=== PATIENT | male | born 1960 | race Caucasian/White ===

== ENCOUNTER → 2016-09-17 | Outpatient (CLI) | payer OTHER ==
[~2016-09-17] MED LIST: ACET-1138 PO; LISI-461 PO; NEBI10TA2 PO; ONDA8TAB6 PO; RXC5 PO; SNK PO; TRAMTAB5 PO; XRL10 PO; [UNRECOGNIZED DRUG - REMARK]
[2016-09-17 12:06] LABS: BASO % 0.8 %; BASO ABS # 0.05 K/uL (0-0.2); COMPLETE YES; EOS % 4.4 %; HEMATOCRIT 46.4 % (42-52); IG% 0.2 %; LYMPH % 26.4 %; LYMPH ABS # 1.76 K/uL (1.2-3.4); MEAN CELL VOLUME 97.5 fL (80-100); MEAN CORPUSCULAR HGB CONC 33.8 g/dl (32-36); MONO % 10.5 %; NEUT % 57.7 %; PLATELET COUNT 254 K/uL (130-400); RED BLOOD COUNT 4.76 M/uL (4.7-6.1); WHITE BLOOD COUNT 6.66 K/uL (4.8-10.8)
[2016-09-17 12:18] LABS: BLOOD UREA NITROGEN 13 mg/dl (7-18); BUN/CREATININE RATIO 14.4 (10-20); CALCIUM 8.8 mg/dl (8.5-10.1); CARBON DIOXIDE 28 mmol/L (21-32); CHLORIDE 108 mmol/L (98-107); CREATININE 0.88 mg/dl (0.60-1.40); GLUCOSE 105 mg/dl (70-99); POTASSIUM 4.3 mmol/L (3.5-5.1); SODIUM 142 mmol/L (136-145)
[2016-09-17 12:25] LABS: ALB/GLOB RATIO 0.9 (0.9-2); ALKALINE PHOSPHATASE 77 U/L (45-117); ALT/SGPT 66 U/L (12-78); AST/SGOT 53 U/L (15-37); CHOLESTEROL 181 mg/dl (0-200); CHOLESTEROL/HDL RATIO 3.4; HDL CHOLESTEROL 53 mg/dl; LDL CHOLESTEROL CALCULATED 109 mg/dl; TRIGLYCERIDES 95 mg/dl (0-150); VERY LOW DENSITY LIPOPROT CALC 19 mg/dl
[2016-09-17 12:32] LABS: ESTIMATED AVERAGE GLUCOSE 103 mg/dl; HA1C FLAG Normal (Normal)
== END | disposition home or self-care (01) ==
LOC: C.LABBC 10:24
PROVIDERS: ATTEND Internal Medicine
DX: Z00.00 Encounter for general adult medical examination without abnormal findings (principal)

== ENCOUNTER 2017-02-08 05:02 | Inpatient (IN) | payer OTHER ==
[2017-01-14 08:49] VITALS: BMI 35.0
--- NOTE | 2017-01-14 09:11 | PAT Medication Instructions ---
Service Date January 14, 2017. Current Home Medication List Nebivolol Hcl (Bystolic), 10 MG PO QAM Tramadol/Acetaminophen (Ultracet), 1 TAB PO HS PRN for Pain [Dr Jordan's Vit] Medication Instructions For Your Scheduled Surgery - Hold the following medications the morning of surgery: [Dr Jordan'kaitlynn Vit] - Take the following medications the morning of surgery with a sip of water OTHERWISE NOTHING TO EAT OR DRINK AFTER MIDNIGHT: Nebivolol Hcl (Bystolic), 10 MG PO QAM - Take the following medications as scheduled the night before surgery: Tramadol/Acetaminophen (Ultracet), 1 TAB PO HS PRN for Pain If you have any questions please call us at [phone] or [phone] or [phone]
--- NOTE | 2017-01-14 09:41 | DIAGNOSTIC IMAGING REPORT ---
CHEST PREADMISSION(PA/LAT) CLINICAL HISTORY: Preoperative evaluation. COMPARISON STUDY: Chest radiograph and chest CT October 13, 2011. FINDINGS: Lung volumes are normal. Lungs are clear. There is no pneumothorax or pleural effusion. Pulmonary vascularity is normal. Cardiac size is normal. There is no evidence of pulmonary edema. IMPRESSION: No acute cardiopulmonary findings. Electronically signed by: Vinh Torre M.D. 01/14/2017 9:40 AM Dictated Date/Time: 01/14/2017 9:39 AM
[2017-01-14 10:06] LABS: BASO % 0.7 %; BASO ABS # 0.04 K/uL (0-0.2); COMPLETE YES; HEMATOCRIT 46.4 % (42-52); IG% 0.2 %; LYMPH % 34.3 %; LYMPH ABS # 1.98 K/uL (1.2-3.4); MEAN CELL VOLUME 98.3 fL (80-100); MEAN CORPUSCULAR HEMOGLOBIN 32.4 pg (25-34); MEAN PLATELET VOLUME 8.9 fL (7.4-10.4); MONO % 8.5 %; NEUT % 51.3 %; PLATELET COUNT 272 K/uL (130-400); RED BLOOD COUNT 4.72 M/uL (4.7-6.1); WHITE BLOOD COUNT 5.78 K/uL (4.8-10.8)
[2017-01-14 10:13] LABS: URINE APPEARANCE CLEAR (CLEAR); URINE BILIRUBIN NEG (NEG); URINE COLOR YELLOW; URINE NITRITE NEG (NEG); URINE PH 6.5 (4.5-7.5); URINE SPECIFIC GRAVITY 1.018 (1.000-1.030); UROBILINOGEN NEG (NEG); ZZUR CULT IF INDIC CLEAN CATCH NO
[2017-01-14 10:15] LABS: MANUAL MICROSCOPIC REQUIRED? NO; REVIEW REQ? NO
[2017-01-14 10:19] LABS: BUN/CREATININE RATIO 16.7 (10-20); CALCIUM 8.8 mg/dl (8.5-10.1); CREATININE 0.76 mg/dl (0.60-1.40); POTASSIUM 4.2 mmol/L (3.5-5.1); PROTHROMBIN TIME (PATIENT) 10.4 SECONDS (9.0-12.0)
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
[~2017-02-08] VITALS: Ht 177.8 cm; Wt 111.4 kg
[2017-02-08] VITALS (9 sets, daily range): BP systolic 120–147; BP diastolic 75–101; PULSE 59–87; TEMP 36.4–36.9; O2SAT 94–99; Ht 177.8 cm; Wt 111.4 kg
[~2017-02-08 05:02] MED LIST changes: -ACET-1138 PO; -LISI-461 PO; -ONDA8TAB6 PO; -RXC5 PO; -SNK PO; -XRL10 PO
[2017-02-08] MEDS ORDERED: FAMOTIDINE 20 MG TAB PO SCH (06:00)
[2017-02-08] MEDS ORDERED: LACTATED RINGER'S 1000ML IV SCH (06:00)
[2017-02-08] MEDS ORDERED: METOCLOPRAMIDE HCL 10 MG TAB PO SCH (06:00)
[2017-02-08] MEDS ORDERED: LACTATED RINGER'S 1000ML 500 ML IV ONE (06:00)
[2017-02-08] MEDS ORDERED: GABAPENTIN 300 MG CAP PO SCH (06:00)
[2017-02-08] MEDS ORDERED: ACETAMINOPHEN 500 MG TAB PO SCH (06:00)
[2017-02-08] MEDS ORDERED: CEFAZOLIN 2000 MG/60 ML D5W 60 ML IV SCH (06:00)
[2017-02-08] MEDS ORDERED: VANCOMYCIN INJ 400 MG in NSS 100ML IR SCH (06:00)
[2017-02-08] MEDS ORDERED: POLYMYXIN B SULFATE 100,000 UNITS in NSS 100ML IR SCH (06:00)
[2017-02-08] MEDS ORDERED: ROPIVACAINE 5MG/ML 30 ML 150 MG, BUPIVACAINE/EPINEPHR 0.5% MPF 30 ML, KETOROLAC TROMETH... INFIL SCH ×7 (06:00)
[2017-02-08] MEDS ORDERED: OXYCODONE HCL 10 MG TABCR (OXYCONTIN) PO SCH (06:00)
[2017-02-08] MEDS ORDERED: TRANEXAMIC ACID INJ 1,000 MG in SODIUM CHLORIDE 0.9% 100ML 100 ML IV SCH ×2 (06:00→15:00)
[2017-02-08] MEDS ORDERED: LACTATED RINGER'S 1000ML 1,000 ML IV SCH (06:00)
[2017-02-08] MEDS ORDERED: DEXAMETHASONE 4 MG TAB PO SCH (06:00)
[2017-02-08] MEDS ORDERED: MIDAZOLAM HCL 1 MG/ML 2ML VIAL ONE ×2 (06:22)
[2017-02-08] MEDS ORDERED: FENTANYL CITRATE INJ 50 MCG/1 ML 2 ML VIAL ONE (06:23)
[2017-02-08] MEDS ORDERED: ONDANSETRON INJ 2 MG/ML 2 ML VIAL ONE (06:26)
[2017-02-08] MEDS ORDERED: LIDOCAINE HCL 2% 2 ML VIAL (20MG/ML) ONE (06:26)
[2017-02-08] MEDS ORDERED: PROPOFOL IV EMULSION 10 MG/ML 20 ML VIAL IV ONE (06:26)
[2017-02-08] MEDS ORDERED: BUPIVACAINE 0.5 % 5 MG/1 ML PF 10ML VIAL ONE (06:31)
--- NOTE | 2017-02-08 06:41 | History & Physical Bridge Note ---
H&P Re-Evaluation Bridge Note: I have examined the patient, reviewed the History & Physical and in the interval since the performance of the History & Physical I have noted the following changes of clinical significance: No changes noted
[2017-02-08] MEDS ORDERED: POVIDONE-IODINE OP SOLN 30 ML BTL ONE (06:43)
[2017-02-08] MEDS ORDERED: BACITRACIN 50000 UNIT VIAL ONE (06:44)
[2017-02-08] MEDS ORDERED: ROPIVACAINE 5MG/ML 30 ML 150 MG, BUPIVACAINE/EPINEPHR 0.5% MPF 30 ML, DEXAMETHASONE INJ... INFIL SCH ×6 (07:00)
[2017-02-08] MEDS ORDERED: PHENYLEPHRINE HCL INJ 10 MG/ML VIAL ONE (07:43)
[2017-02-08] MEDS ORDERED: PHENYLEPHRINE 100MCG/ML 5ML SYR ONE (08:09)
--- NOTE | 2017-02-08 08:31 | [facility] Post Operative Brief Note ---
Immediate Operative Summary Operative Date February 08, 2017. Pre-Operative Diagnosis Degenerative Joint Disease Right Hip Post-Operative Diagnosis Degenerative Joint Disease Right Hip Procedure(s) Performed Right Total Hip Arthroplasty, Direct Anterior Approach Uncemented Surgeon Dr. Jordan Jewel Corner Brushing Machine Operator Surgeon(s) Yuliet PEREIRA Estimated Blood Loss 50 ML Findings HYPERTROPHIC OA Specimens A: Right femoral Head Complication(s) None Disposition Recovery Room / PACU
[2017-02-08] MEDS ORDERED: METOCLOPRAMIDE HCL INJ 5 MG/ML 2 ML VIAL IV PRN (08:45)
[2017-02-08] MEDS ORDERED: MAGNESIUM HYDROXIDE SUSP 30 ML UDC PO PRN (08:45)
[2017-02-08] MEDS ORDERED: ZOLPIDEM TARTRATE 5 MG TAB PO PRN (08:45)
[2017-02-08] MEDS ORDERED: TRAMADOL HCL 50 MG TAB PO PRN (08:45)
[2017-02-08] MEDS ORDERED: ONDANSETRON INJ 2 MG/ML 2 ML VIAL IV PRN ×2 (08:45→09:00)
[2017-02-08] MEDS ORDERED: DiphenhydrAMINE HCL 50 MG/ML VIAL IV PRN (08:45)
[2017-02-08] MEDS ORDERED: MoRPHine SULFATE 2 MG/ML CARP IV PRN (08:45)
[2017-02-08] MEDS ORDERED: BISACODYL 10 MG SUPP PR PRN (08:45)
[2017-02-08] MEDS ORDERED: ALUMINUM/MAGNESIUM/SIMETH (MAALOX MAX) 30 ML UDC PO PRN (08:45)
[2017-02-08] MEDS ORDERED: SOD PHOSPHATE/SOD BIPHOSPHATE ENEMA 132 ML BTL PR PRN (08:45)
--- NOTE | 2017-02-08 08:48 | DIAGNOSTIC IMAGING REPORT ---
RIGHT HIP UNILATERAL 1 VIEW CLINICAL HISTORY: RIGHT ANTERIOR HIP Right Fluoroscopy time: 16.4 seconds. FINDINGS: Single fluoroscopic spot image of the right hip. There is a right total hip arthroplasty. The hardware appears intact. No fracture or dislocation. IMPRESSION: Fluoroscopy provided for right total hip arthroplasty. Electronically signed by: Leon Harrington M.D. 02/08/2017 8:46 AM Dictated Date/Time: 02/08/2017 8:46 AM
[2017-02-08] MEDS ORDERED: ATROPINE SULFATE 0.1 MG/ML 5ML SYR IV PRN (09:00)
[2017-02-08] MEDS ORDERED: PHENYLEPHRINE 100MCG/ML 5ML SYR IV PRN (09:00)
[2017-02-08] MEDS ORDERED: HYDROmorphone INJ 2 MG/ML SYR/VIAL IV PRN (09:00)
[2017-02-08] MEDS ORDERED: EpHEDrine SULFATE INJ 50 MG/ML AMP IV PRN (09:00)
--- NOTE | 2017-02-08 09:28 | Anesthesiology Progress Note ---
Anesthesia Post Op Note Date & Time February 08, 2017 at 09:28 Vital Signs Pain Intensity: 0 Vital Signs Past 12 Hours Date Time Temp Pulse Resp B/P Pulse Ox O2 Delivery O2 Flow Rate FiO2 02/08/17 09:25 36.4 69 16 141/88 96 Nasal Cannula 2 02/08/17 09:15 71 16 122/74 96 Nasal Cannula 2 02/08/17 09:05 80 16 128/83 94 Mask 6 02/08/17 08:57 36.4 77 16 110/75 98 Mask 6 02/08/17 05:35 36.5 87 20 142/101 94 Room Air Notes Mental Status: alert / awake / arousable, participated in evaluation Pt Amnestic to Procedure: Yes Nausea / Vomiting: adequately controlled Pain: adequately controlled Airway Patency, RR, SpO2: stable & adequate BP & HR: stable & adequate Hydration State: stable & adequate Neuraxial Anesthesia: was administered, sensory block is resolving Anesthetic Complications: no major complications apparent
--- NOTE | 2017-02-08 09:39 | DIAGNOSTIC IMAGING REPORT ---
AP PELVIS, CROSSTABLE LATERAL RIGHT HIP History: Right total hip arthroplasty. Degenerative arthritis. Postop. FINDINGS: The patient is status post a right total hip arthroplasty. The hardware is intact. No fracture or dislocation. Surgical drains are in place. IMPRESSION: Right total hip arthroplasty. No evidence for hardware complication Electronically signed by: Leon Harrington M.D. 02/08/2017 9:37 AM Dictated Date/Time: 02/08/2017 9:35 AM
[2017-02-08] MEDS: PANTOprazole SOD 40 MG TAB PO SCH (11:11)
[2017-02-08] MEDS: D5W AND 1/2NSS + 20MEQ KCL 1,000 ML IV SCH ×2 (11:11→20:40)
[2017-02-08] MEDS: MULTIVITAMIN TAB PO SCH (11:11)
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
[2017-02-08] MEDS: CEFAZOLIN IV 2,000 MG in DEXTROSE 5% 50ML 50 ML IV SCH ×2 (13:43→21:50)
[2017-02-08] MEDS: ACETAMINOPHEN 500 MG TAB PO SCH ×2 (13:43→21:50)
[2017-02-08] MEDS: OXYCODONE HCL IR 5 MG TAB (IMMEDIATE RELEASE) PO PRN (20:40)
[2017-02-08] MEDS ORDERED: SENNA 8.6 MG TAB PO SCH (21:00)
[2017-02-09 03:10] VITALS: BP 146/82; PULSE 62; TEMP 36.4; O2SAT 94
[2017-02-09] MEDS: ACETAMINOPHEN 500 MG TAB PO SCH ×2 (05:37→13:44)
[2017-02-09] MEDS: D5W AND 1/2NSS + 20MEQ KCL 1,000 ML IV SCH (05:37)
[2017-02-09 06:20] LABS: BASO % 0.1 %; BASO ABS # 0.01 K/uL (0-0.2); COMPLETE YES; HEMATOCRIT 41.8 % (42-52); IG% 0.4 %; LYMPH % 7.1 %; LYMPH ABS # 0.99 K/uL (1.2-3.4); MEAN CELL VOLUME 97.2 fL (80-100); MEAN CORPUSCULAR HEMOGLOBIN 33.3 pg (25-34); MEAN CORPUSCULAR HGB CONC 34.2 g/dl (32-36); MEAN PLATELET VOLUME 8.7 fL (7.4-10.4); MONO % 8.7 %; NEUT % 83.7 %; PLATELET COUNT 244 K/uL (130-400); WHITE BLOOD COUNT 14.03 K/uL (4.8-10.8)
[2017-02-09 06:56] LABS: BUN/CREATININE RATIO 13.2 (10-20); CALCIUM 8.6 mg/dl (8.5-10.1); CREATININE 0.77 mg/dl (0.60-1.40); POTASSIUM 4.2 mmol/L (3.5-5.1)
[2017-02-09] MEDS: OXYCODONE HCL IR 5 MG TAB (IMMEDIATE RELEASE) PO PRN ×2 (07:08→12:02)
[2017-02-09] MEDS ORDERED: NURSING VERBAL MED ORDER ONE (07:30)
[2017-02-09] MEDS ORDERED: SNK PO (07:55)
[2017-02-09] MEDS ORDERED: XRL10 PO (07:55)
[2017-02-09] MEDS ORDERED: ONDA8TAB6 PO (07:55)
[2017-02-09] MEDS ORDERED: RXC5 PO (07:55)
[2017-02-09] MEDS ORDERED: ACET-1138 PO (07:55)
--- NOTE | 2017-02-09 07:57 | Discharge Instructions ---
Discharge Instructions Date of Service February 09, 2017. Admission Reason for Admission: Right Hip Degenerative Arthritis Discharge Discharge Diagnosis / Problem: sp right QASIM Discharge Goals Goal(s): Decrease discomfort, Improve function, Increase independence Activity Recommendations Activity Limitations: per Instructions/Follow-up section . Instructions / Follow-Up Instructions / Follow-Up ACTIVITY RECOMMENDATIONS: SELF CARE INSTRUCTIONS AFTER TOTAL HIP REPLACEMENT : Direct Anterior Approach Until the incision and soft tissues around your hip have healed, there is a possibility that the hip prosthesis could dislocate. A. Hip flexion ( Up & Down out of chair or steps ) may be difficult. This is normal. B. Numbness in front of the thigh is also normal for a few weeks. C. Use hand rails when walking on stairs. D. Wear low heeled shoes with non-slip soles. E. Be sure that your floors are free of things that could trip you - throw rugs , electrical cords, small objects. Avoid wet and waxed floors, especially with crutches and canes. F. Try to walk several times a day with rest periods between. G. Continue with all the exercises taught to you in the hospital. Again, make walking a part of your daily routine. SPECIAL CARE INSTRUCTIONS: VERY IMPORTANT TO READ AND REVIEW A. You may still be at risk for phlebitis and blood clots. 1. Wear surgical stockings (LINDA hose) for 2 weeks after surgery to improve circulation and reduce swelling. 2. Take XARELTO ONCE DAILY X 2 WEEKS 3. High risk patients may be prescribed a stronger blood thinner if necessary. 4. If you are on Coumadin normally, your family doctor/kerrick kleaner operator should monitor your blood work. Expect a phone call the day of or the day after bloodwork is drawn to adjust your dosage. B. You must take antibiotics before having dental work, bladder, bowel and other surgery. Your doctor will provide you with a permanent card to carry describing precautions. C. Call [facility] if you have a fever, redness or swelling around the incision, cloudy drainage from incision, or sudden increase in pain in your hip, not relieved by your regular pain medication. D. Please call the office at if you have any concerns or questions about your operation or recovery. * YOU MAY SHOWER, NO TUB BATHS UNTIL CLEARED BY YOUR DOCTOR. - Keep an extra close eye on the top portion of your incision. Be sure to keep clean & dry. * WEAR LINDA HOSE 20 HOURS PER DAY FOR 2 WEEKS. * YOU MAY PROGRESS FROM A WALKER, TO A CANE, TO INDEPENDENT AT YOUR OWN PACE. * MOST PATIENTS WILL HAVE HOME NURSING FOR THERAPY. IF YOU DECIDE TO DO OUTPATIENT PHYSICAL THERAPY, PLEASE SCHEDULE THIS 3 TIMES PER WEEK. * DERMABOND Prineo- This is a mesh tape dressing that is covered with glue. It should remain in place until the incision is properly healed, usually 10-14 days. This dressing is designed to naturally slough off. You may trim the excess mesh tape as it peels off. Incision may be briefly wet in a shower. Dry immediately by blotting with a clean, dry towel. Do not bath or swim until instructed by your doctor. Do not scratch, rub, or pick at the dressing. Do not apply any topical ointments or lotions until dressing is completely removed and/or instructed by your doctor. There may be a small piece of suture material at one end of your incision. Do not pull or trim this. If it is bothersome or catching on clothing, you may cover it with a band-aid. FOLLOW UP VISIT: If appointment is not already scheduled: Please call [facility] to make a follow-up appointment for 2 weeks after your surgery at . Current Hospital Diet Patient's current hospital diet: Regular Diet Discharge Diet Recommended Diet: Regular Diet Procedures Procedures Performed: Right Total Hip Arthroplasty, Direct Anterior Approach Uncemented Pending Studies Studies pending at discharge: no Medical Emergencies . Who to Call and When: Medical Emergencies: If at any time you feel your situation is an emergency, please call 911 immediately. . Non-Emergent Contact Non-Emergency issues call your: Surgeon . "Provider Documentation" section prepared by Yuliet Burks. . VTE Core Measure Inpt VTE Proph given/why not?: Other Anticoagulation, T.E.D. Stockings, SCD's
--- NOTE | 2017-02-09 07:59 | DISCHARGE SUMMARY ---
DATE OF DISCHARGE: 02/09/17 DISCHARGE DIAGNOSIS: Degenerative joint disease, right hip. SECONDARY DIAGNOSIS: None. CONSULTS: Dr. Crawford. COMPLICATIONS: None. PROCEDURE: The patient underwent a right direct anterior total hip arthroplasty with Dr. Jordan on 02/08/2017. BRIEF HISTORY: Please see previously dictated history and physical. HOSPITAL SUMMARY: The patient was admitted on the above day for the above procedure. Procedure went without complication. Postop day 1, the patient was feeling well without complaints. He denied chest pain or shortness of breath. Vital signs were stable. He was afebrile. Dressing was clean, dry and intact. He was neurovascularly intact. Calves were soft and nontender. The patient was ambulating in his room independently with his walker. He is scheduled for radiation simulation and therapy today. He tolerated physical therapy and was discharged home later that day in stable condition. For further review please see the chart. Lab, x-ray data and discharge instructions as per chart.
[2017-02-09 08:02] VITALS: BP 160/82; PULSE 66; TEMP 36.4; O2SAT 96
--- NOTE | 2017-02-09 08:26 | OPERATIVE REPORT ---
DATE OF OPERATION: 02/08/2017 PREOPERATIVE DIAGNOSIS: Degenerative arthritis, right hip. POSTOPERATIVE DIAGNOSIS: Same. PROCEDURE: Right total hip replacement. SURGEON: Avinash Jordan MD BREASTER: ALLISON Carney ANESTHESIA: Spinal. BLOOD LOSS: 50 mL REPLACEMENT FLUIDS: 1700 mL crystalloid. DRAINS: Hemovacs x1. CULTURES: None. COMPLICATIONS: None. COMPONENTS USED: Arboleda \T\ Nephew Polar hip system: Acetabulum size 54, femur size 4 standard offset, femoral head -3, 36 mm. NOTE: ALLISON Carney was present and assisted throughout due to the complicated nature of this case. She helped with preparation and setup. She first assisted throughout and she personally closed the fascial, subcutaneous and skin layers and applied the postoperative dressing. DESCRIPTION: Following satisfactory spinal, the patient was supine. The right hip was placed in the traction device and the left leg in the well leg munoz. The right hip was prepared with ChloraPrep and draped sterilely. Following a surgical time-out, an anterior approach was performed in the interval between the sartorius and tensor muscles. Circumflex femoral vessels were identified and ligated. Anterior capsulotomy was performed exposing a severely arthritic femoral neck and head with hypertrophic osteoarthritis. The femoral neck and head were trimmed and removed. The acetabular self-retaining retractor was placed and acetabular preparation was completed including removing large amounts of the inferior osteophyte. Reaming was completed under fluoroscopic control and a 54 shell was impacted into an anatomic position and secured with a dome screw. Local anesthetic was placed and after irrigation, the poly liner was placed. The femur was placed in a position of external rotation, extension and adduction. The femoral canal was prepared up to a size 4. Intraoperative fluoroscopy reduction with a -3 head showed good fit and fill of the proximal canal and islam of leg lengths using fluoroscopic landmarks. The hip was dislocated, trial component removed. The final implant placed and fluoroscopy confirmed similar position. A Betadine soak was performed. The Betadine was then irrigated after 3 minutes, capsule was closed with 1-0 Vicryl interrupted. A drain was then placed. After irrigation, the fascia was closed with a running suture of #1 Vicryl, the subcutaneous tissues with 2-0 Vicryl, skin with a running subcuticular stitch of 3-0 V-Loc. Dermabond and a dry dressing were applied. The patient was returned to his bed in stable condition. I attest to the content of the Intraoperative Record and any orders documented therein. Any exceptio ns are noted below.
[2017-02-09 08:56] VITALS: O2SAT 96
[2017-02-09] MEDS ORDERED: NEBIVOLOL HCL 5 MG TAB PO SCH (09:00)
[2017-02-09] MEDS: PANTOprazole SOD 40 MG TAB PO SCH (09:07)
[2017-02-09] MEDS: MULTIVITAMIN TAB PO SCH (09:07)
[2017-02-09 11:32] VITALS: BP 125/70; PULSE 65; TEMP 37; O2SAT 96
[2017-02-09] MEDS ORDERED: RIVAROXABAN 10 MG TAB PO SCH (12:00)
[2017-02-09 13:39] VITALS: BP 125/70; PULSE 65; TEMP 37; O2SAT 96
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
== END 2017-02-09 13:59 | disposition home health service (06) | DRG 470 ==
LOC: ENRESERVTM → CANRESERV → ENRESERVDT → C.ACU 05:02 → C.3E 08:30
PROVIDERS: ADMIT Orthopaedic Surgery; ATTEND Orthopaedic Surgery
PROC: 0SR904A Replacement of Right Hip Joint with Ceramic on Polyethylene Synthetic Substitute, Uncemented, Open Approach (ICD-10-PCS; principal; 2017-02-08 07:00)
DX: M16.11 Unilateral primary osteoarthritis, right hip (principal); I10 Essential (primary) hypertension; E66.9 Obesity, unspecified; Z68.35 Body mass index [BMI] 35.0-35.9, adult; Z79.899 Other long term (current) drug therapy; Z79.891 Long term (current) use of opiate analgesic

== ENCOUNTER → 2017-11-04 | Outpatient (CLI) | payer OTHER ==
[~2017-11-04] MED LIST changes: +ACET-1138 PO; +RXC5 PO; +SNK PO; -TRAMTAB5 PO; +XRL10 PO
[2017-11-04 11:00] LABS: BASO % 0.4 %; BASO ABS # 0.03 K/uL (0-0.2); EOS % 4.5 %; EOS ABS # 0.36 K/uL (0-0.5); HEMOGLOBIN 15.6 g/dL (14.0-18.0); IG# 0.01 K/uL (0.00-0.02); LYMPH % 22.7 %; LYMPH ABS # 1.81 K/uL (1.2-3.4); MEAN CORPUSCULAR HEMOGLOBIN 32.9 pg (25-34); MEAN CORPUSCULAR HGB CONC 33.9 g/dl (32-36); MEAN PLATELET VOLUME 9.3 fL (7.4-10.4); MONO % 10.2 %; MONO ABS # 0.81 K/uL (0.11-0.59); NEUT % 62.1 %; NEUT ABS # 4.96 K/uL (1.4-6.5); PLATELET COUNT 243 K/uL (130-400); RED CELL DISTRIBUTION WIDTH CV 13.4 % (11.5-14.5); RED CELL DISTRIBUTION WIDTH SD 47.6 fL (36.4-46.3); WHITE BLOOD COUNT 7.98 K/uL (4.8-10.8)
[2017-11-04 11:11] LABS: ALBUMIN 3.5 gm/dl (3.4-5.0); ALT/SGPT 62 U/L (12-78); AST/SGOT 50 U/L (15-37); BLOOD UREA NITROGEN 12 mg/dl (7-18); CALCIUM 8.4 mg/dl (8.5-10.1); CARBON DIOXIDE 27 mmol/L (21-32); GLUCOSE 124 mg/dl (70-99); POTASSIUM 4.4 mmol/L (3.5-5.1); SODIUM 139 mmol/L (136-145)
[2017-11-04 11:22] LABS: ALKALINE PHOSPHATASE 71 U/L (45-117); CHOLESTEROL 193 mg/dl (0-200); LDL CHOLESTEROL CALCULATED 120 mg/dl; TOTAL PROTEIN 7.9 gm/dl (6.4-8.2)
[2017-11-04 11:34] LABS: HEMOGLOBIN A1C 5.3 % (4.5-5.6)
== END | disposition home or self-care (01) ==
LOC: C.LABBC 08:23
PROVIDERS: ATTEND Internal Medicine
DX: I10 Essential (primary) hypertension (principal); R73.01 Impaired fasting glucose; G47.33 Obstructive sleep apnea (adult) (pediatric); K22.2 Esophageal obstruction; Z11.59 Encounter for screening for other viral diseases; R76.0 Raised antibody titer